=== PATIENT | female | born 1935 | race Caucasian/White ===

== ENCOUNTER → 2017-07-05 | Outpatient (CLI) | payer MEDICARE, BC ==
--- NOTE | 2017-07-05 10:44 | MR ---
EXAMINATION TYPE: MR brain wo/w con DATE OF EXAM: 07/05/2017 COMPARISON: 08/05/2015 HISTORY: Brain tumor TECHNIQUE: Multiplanar, multisequence images of the brain and brainstem is performed without and with IV contras t, utilizing 7.5 mL intravenous Gadavist . FINDINGS: Diffusion weighted images demonstrate no evidence of a recent infarct or other diffusion ab normality. There is redemonstration of homogeneous enhancing extra-axial lesion measuring 1.2 by 1.3 x 1.8 cm consistent with meningioma along right frontal anterior falx. Lesion is stable in size and a ppearance from prior study. Local mass effect is seen. No new suspicious enhancing lesion is seen. There is mild ventricular and sulcal prominence consistent with diffuse age-related cerebral atrophy. There are scattered foci of T2 hyperintensity seen throughout the white matter bilaterally. The lesi ons are nonspecific in appearance and distribution but stable in size and number from prior exam and felt to reflect product of chronic small vessel ischemic change. The craniocervical junction appears within normal limits. Post contrast images demonstrate no new abn ormal enhancement. The dural venous sinuses appear patent. The visualized sinuses are clear and the g lobes are intact. IMPRESSION: 1. Overall stable findings, mild age-related cerebral atrophy and chronic small vessel ischemic brody e. 2. Stable right frontal meningioma.
== END | disposition home or self-care (01) ==
LOC: RADMRIMAIN 06:36
PROVIDERS: ATTEND Psychiatry & Neurology Neurology
DX: D32.0 Benign neoplasm of cerebral meninges (principal); G31.1 Senile degeneration of brain, not elsewhere classified
CPT/HCPCS: 70553; A9581

== ENCOUNTER → 2021-03-22 | Outpatient (CLI) | payer MEDICARE, BC ==
--- NOTE | 2021-03-22 10:16 | MR ---
EXAMINATION TYPE: MR shoulder LT wo con DATE OF EXAM: 03/22/2021 COMPARISON: None HISTORY: Left shoulder pain TECHNIQUE: Multiplanar, multisequence imaging of the left shoulder is performed without contrast. FINDINGS: Rotator Cuff: There is a full-thickness supraspinatus tendon tear at the footplate. There is a partia l-thickness undersurface tear of the infraspinatus tendon. The subscapularis and teres minor tendons are grossly intact. Acromioclavicular Joint: Degenerative changes are noted in the acromioclavicular joint without os acr omiale. There is a subacromial spur. Fluid is noted in the subacromial/subdeltoid bursa. Glenohumeral Joint: There are articular cartilage defects of the glenohumeral joint with small glenoh umeral joint effusion. Labrum: The labrum appears grossly intact given limitation of non-arthrogram study. Biceps Tendon: The long head biceps tendon is thickened and edematous, particularly in the intra-surendra cular portion where it is relatively indistinct. Bone marrow signal: No focal abnormal marrow signal is appreciated. Other: No additional significant abnormality is appreciated. IMPRESSION: 1. Full-thickness tear of the supraspinatus tendon at the footplate. 2. Partial-thickness undersurface tear of the infraspinatus tendon. 3. Acromioclavicular degenerative changes with subacromial spur and fluid in the subacromial/subdelto id bursa. 4. Degenerative changes of the glenohumeral joint with small glenohumeral joint effusion. 5. The long head biceps tendon is thickened and edematous, particularly in the intra-articular portio n which is relatively indistinct and likely represents partial tear.
--- NOTE | 2021-03-22 10:27 | MR ---
EXAMINATION TYPE: MR shoulder RT wo con DATE OF EXAM: 03/22/2021 COMPARISON: None HISTORY: Right shoulder pain TECHNIQUE: Multiplanar, multisequence imaging of the right shoulder is performed without contrast. FINDINGS: Rotator Cuff: There is a complete rotator cuff tear involving the supraspinatus tendon with retractio n to the level of the acromioclavicular joint. The infraspinatus tendon shows irregular appearance, i ncreased signal within its substance on T2-weighted sequences, fluid signal present extending to the musculotendinous junction, subscapularis tendon also shows an increased thickening and signal at the level of its insertion Acromioclavicular Joint: Arthropathy changes present, hypertrophic changes are noted, there is a dist al acromial spur Glenohumeral Joint: Osteoarthritic changes present, there is marginal spurring, humeral head shows so me remodeling as does the bony glenoid Labrum: The labrum appears grossly intact given limitation of non-arthrogram study. Biceps Tendon: Long head of biceps tendon is seen at the level of the bicipital groove but is somewha t attenuated in its course is not well seen more centrally Bone marrow signal: There is some pseudocysts in the humeral head Other: There is a joint effusion. Suspect a small loose body, axial image #8, coronal image #10 measu ring approximately 3 mm IMPRESSION: Supraspinatus tear with retraction, joint effusion, osteoarthritis, findings may be secondary to impi ngement, there is hypertrophic change of the acromioclavicular joint, distal acromial spur. Intrasubs tance tear, tendinosis suspected of the infraspinatus tendon, subscapularis tendon. Additional findin gs above.
== END | disposition home or self-care (01) ==
LOC: RADMRIMAIN 08:10
PROVIDERS: ATTEND Family Medicine
DX: M75.122 Complete rotator cuff tear or rupture of left shoulder, not specified as traumatic (principal); M19.012 Primary osteoarthritis, left shoulder; M19.011 Primary osteoarthritis, right shoulder

== ENCOUNTER → 2024-04-12 | Outpatient (CLI) | payer MEDICARE, BC ==
--- NOTE | 2024-04-13 22:07 | MR ---
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 The patient was then given intravenous contrast and multi planar, T1 fat-saturation images wer e obtained. IV Contrast: 6 cc Gadavist FINDINGS: Anterior right frontal lobe extra-axial mass measuring 15 x 12 x 20 mm with dural tail seen dating back to at least 2016. There is homogenous postcontrast enhancement. Additional extra-axial e nhancing lesion small possible meningioma on the right lateral aspect series 1001 image 113 measuring 4 mm Mild cerebral atrophy with proportional dilation of ventricular system. Diffusion-weighted petey ging shows no evidence of restricted diffusion to suggest acute/subacute infarct. Intracranial arteri al flow voids are maintained. Midline structures show no abnormality. Scattered foci of high T2 signa l intensity are seen within the periventricular white matter. The susceptibility weighted images do n ot reveal any evidence for micro-hemorrhage. After administration of gadolinium, no additional abnorm al enhancement is seen. The bone marrow signal is within normal limits. Paranasal sinuses and mastoid air cells: No significant paranasal sinus disease. Visualized orbits: Bilateral aphakia IMPRESSION: 1. No evidence of intracranial mass, acute/subacute infarct, or abnormal enhancement. 2. Nonspecific white matter changes, likely related to small vessel ischemic disease. 3. Right anterior suspected falx meningioma stable from prior with new focus of enhancement on the ri ght possibly representing another extra-axial meningioma. Attention on short-term follow-up imaging i n 6-12 months.
== END | disposition home or self-care (01) ==
LOC: RADMRIMAIN 12:34
PROVIDERS: ATTEND Family Medicine
DX: G31.9 Degenerative disease of nervous system, unspecified (principal); R55 Syncope and collapse; D32.0 Benign neoplasm of cerebral meninges; Z86.011 Personal history of benign neoplasm of the brain
CPT/HCPCS: 70553; A9585